=== PATIENT | male | born 1995 | race Asian ===

== ENCOUNTER 2019-12-23 06:51 | Day surgery (SDC) | payer OTHER ==
[~2019-12-23] VITALS: Ht 175.3 cm; Wt 69.9 kg
[2019-12-23] MEDS ORDERED: MUPIROCIN 2% TOPICAL OINTMENT 22 GM TP ONE (08:50)
[2019-12-23] MEDS ORDERED: EPINEPHrine 1 MG/ML AMP IM ONE (08:50)
[2019-12-23] MEDS ORDERED: SEVOFLURANE 15 MIN GAS INH ONE (08:50)
[2019-12-23] MEDS ORDERED: NS IRRIG SOLN 1000 ML IR ONE (08:50)
[2019-12-23] MEDS ORDERED: WATER FOR IRRIGATION,STERILE 1,000 ML IRRIG.SOLN IR ONE (08:50)
[2019-12-23] MEDS ORDERED: fentaNYL CITRATE 250 MCG/5 ML AMP IV ONE (08:50)
[2019-12-23] MEDS ORDERED: NS 1000 ML IV.SOLN IV ONE (08:50)
[2019-12-23] MEDS ORDERED: MIDAZOLAM HCL 5 MG/5 ML VIAL IVP ONE (08:50)
[2019-12-23] MEDS ORDERED: PROPOFOL 200MG/ 20ML VIAL (DIPRIVAN) IV ONE (08:50)
[2019-12-23] MEDS ORDERED: ROCURONIUM BROMIDE 10 MG/ML (ZEMURON) IV ONE (08:50)
[2019-12-23] MEDS ORDERED: DEXAMETHASONE SOD PHOSPHATE 4 MG/ML VIAL IVP ONE (08:50)
[2019-12-23] MEDS ORDERED: LIDOCAINE/EPI 1% 1:100000 20 ML VIAL INJ ONE (08:50)
[2019-12-23] MEDS ORDERED: ONDANSETRON HCL 4 MG/2 ML VIAL IVP ONE ×3 (08:50→15:00)
[2019-12-23] MEDS ORDERED: MORPHINE 2 MG/ML INJ. SYRINGE IVP ONE (13:00)
[2019-12-23] MEDS ORDERED: ONDANSETRON HCL 4 MG/2 ML VIAL ONE ×2 (13:18→15:05)
[2019-12-23] MEDS ORDERED: MORPHINE 4 MG/ML INJ. SYRINGE ONE (13:27)
[2019-12-23 14:14] VITALS: BP_SYST 140
== END 2019-12-23 15:50 | disposition home or self-care (01) ==
LOC: SDS 06:51 → SMU 06:53 → SDS 15:50
PROVIDERS: ATTEND Otolaryngology
DX: J34.89 Other specified disorders of nose and nasal sinuses (principal); J32.0 Chronic maxillary sinusitis; J34.2 Deviated nasal septum; J34.3 Hypertrophy of nasal turbinates; D38.5 Neoplasm of uncertain behavior of other respiratory organs; J30.1 Allergic rhinitis due to pollen; F17.218 Nicotine dependence, cigarettes, with other nicotine-induced disorders
CPT/HCPCS: 30140; 30520; 31256; 31298; 88305; C1726; J0171; J1100; J2250; J2270; J2405; J2704; J3010; J7030